=== PATIENT | male | born 1980 | race Two or more races ===

== ENCOUNTER 2017-09-08 23:31 | Emergency (ER) | payer MEDICARE, MEDICAID ==
[~2017-09-08] VITALS: Ht 177.8 cm; Wt 81.6 kg
[2017-09-08 23:45] VITALS: BP 137/98
== END 2017-09-09 03:51 | disposition home or self-care (01) ==
LOC: EDBD 23:31 → ER 23:31
DX: S13.4XXA Sprain of ligaments of cervical spine, initial encounter (principal); V89.2XXA Person injured in unspecified motor-vehicle accident, traffic, initial encounter; Y93.89 Activity, other specified; Y92.89 Other specified places as the place of occurrence of the external cause; Y99.8 Other external cause status
CPT/HCPCS: 71250; 72125; 74176